=== PATIENT | male | born 1995 | race American Indian/Alaskan Native ===

== ENCOUNTER 2017-12-24 00:38 | Emergency (ER) | payer SELFPAY ==
[2017-12-24 02:36] LABS: Bilirubin,Urine NEG (Negative); Blood,Urine NEG (Negative); Color,Urine Yellow (Yellow); Protein,Urine <15 mg/dL mg/dL (Negative); Urobilinogen,Urine < 2.0 mg/dL (<2.0)
[2017-12-24 02:39] LABS: WBC,Urine < 1.0 /HPF (0.0-6.0)
[2017-12-24] MEDS ORDERED: ZITHROMAX PO ONE (02:43)
[2017-12-24] MEDS ORDERED: ROCEPHIN IM ONE (02:43)
[2017-12-24] MEDS ORDERED: XYLOCAINE 1% MPF 5 mL INFILTRATI ONE (02:43)
--- NOTE | 2017-12-24 03:02 | Emergency Department Report ---
ED Male HPI - General Chief complaint: Urogenital-Male Stated complaint: STD EXPLOSURE Time Seen by Provider: 12/24/17 01:23 Source: patient Mode of arrival: Ambulatory Limitations: No Limitations - History of Present Illness Initial comments: This is a 59-year-old male nontoxic, well nourished in appearance, no acute signs of distress presents to the ED with c/o of STD check-up. Patient denies any testicular pain or swelling. PAtient denies any penile discharge. Patient denies any penile ulcers or lesions. Patient denies any nausea, vomiting, chest pain, shortness of breathe, fever, chills, headache, back pain, numbness, tingling, stiff neck. Patient denies any urinary symptoms. Patient denies any allergies or PMH. MD Complaint: other (possible STD) Radiation: none Severity scale (0 -10): 0 Improves with: none Worsens with: none denies other symptoms. denies: discharge, swelling, mass, rash, urinary retention, blood in urine, dysuria, fever, nausea/vomiting, incontinence - Related Data Allergies Allergy/AdvReac Type Severity Reaction Status Date / Time No Known Allergies Allergy Verified 12/24/17 01:09 ED Review of Systems ROS: Stated complaint: STD EXPLOSURE Other details as noted in HPI Constitutional: denies: chills, fever Eyes: denies: eye pain, eye discharge, vision change ENT: denies: ear pain, throat pain Respiratory: denies: cough, shortness of breath, wheezing Cardiovascular: denies: chest pain, palpitations Endocrine: no symptoms reported Gastrointestinal: denies: abdominal pain, nausea, diarrhea Genitourinary: denies: urgency, dysuria Musculoskeletal: denies: back pain, joint swelling, arthralgia Skin: denies: rash, lesions Neurological: denies: headache, weakness, paresthesias Psychiatric: denies: anxiety, depression Hematological/Lymphatic: denies: easy bleeding, easy bruising ED Past Medical Hx - Past Medical History Previous Medical History?: No - Surgical History Past Surgical History?: No - Social History Smoking Status: Current Every Day Smoker Substance Use Type: Alcohol, Marijuana ED Physical Exam - General Limitations: No Limitations General appearance: alert, in no apparent distress - Head Head exam: Present: atraumatic, normocephalic - Eye Eye exam: Present: normal appearance Pupils: Present: normal accommodation - ENT ENT exam: Present: normal exam, mucous membranes moist - Neck Neck exam: Present: normal inspection, full ROM - Respiratory Respiratory exam: Present: normal lung sounds bilaterally. Absent: respiratory distress - Cardiovascular Cardiovascular Exam: Present: regular rate, normal rhythm. Absent: systolic murmur, diastolic murmur, rubs, gallop - GI/Abdominal GI/Abdominal exam: Present: soft, normal bowel sounds - Rectal Rectal exam: Present: deferred - Extremities Exam Extremities exam: Present: normal inspection, full ROM, normal capillary refill - Back Exam Back exam: Present: normal inspection, full ROM. Absent: tenderness, CVA tenderness (R), CVA tenderness (L), muscle spasm, paraspinal tenderness, vertebral tenderness, rash noted - Neurological Exam Neurological exam: Present: alert, oriented X3, normal gait - Psychiatric Psychiatric exam: Present: normal affect, normal mood - Skin Skin exam: Present: warm, dry, intact, normal color. Absent: rash ED Course Vital Signs 12/24/17 01:09 Temperature 98.6 F Pulse Rate 71 Respiratory 16 Rate Blood Pressure 122/75 O2 Sat by Pulse 100 Oximetry - Reevaluation(s) Reevaluation #1: 12/24/17 03:01 Patient is speaking in full sentences with no signs of distress noted. ED Medical Decision Making - Medical Decision Making This is a 21-year-old male that presents with possible STD. Patient is stable was examined by me. There is no abdominal tenderness. UA obtained. Gonorrhea chlamydia swab pending. Patient was instructed to return in 3-5 days for GC results. Patient wanted empirical treatment so patient received 250 mg Rocephin and 1 g of azithromycin by mouth. Patient was instructed to Follow-up with a primary care doctor in 3-5 days or if symptoms worsen and continue return to emergency room as soon as possible. At time of discharge, the patient does not seem toxic or ill in appearance. No acute signs of distress noted. Patient agrees to discharge treatment plan of care. No further questions noted by the patient. Critical care attestation.: If time is entered above; I have spent that time in minutes in the direct care of this critically ill patient, excluding procedure time. ED Disposition Clinical Impression: Possible exposure to STD Disposition: DC-01 TO HOME OR SELFCARE Is pt being admited?: No Does the pt Need Aspirin: No Condition: Stable Instructions: Safe Sex (ED) Additional Instructions: Follow-up with a primary care doctor in 3-5 days or if symptoms worsen and continue return to emergency room as soon as possible. Return in 3-5 days for gonorrhea and chlamydia results. Referrals: PRIMARY CARE, [Primary Care Provider] - 3-5 Days GIOVANNA MATUTE MD [Staff Physician] - 3-5 Days [facility] [Outside] - 3-5 Days Forms: Work/School Release Form(ED)
[2017-12-24] MEDS ORDERED: ZITHROMAX ONE (03:37)
[2017-12-24 04:13] VITALS: BP 118/69
== END 2017-12-24 04:12 | disposition home or self-care (01) ==
LOC: ED 00:38
DX: Z11.3 Encounter for screening for infections with a predominantly sexual mode of transmission (principal); F17.200 Nicotine dependence, unspecified, uncomplicated; F12.10 Cannabis abuse, uncomplicated
CPT/HCPCS: 81001; 87591; 96372; 99282; J0696

== ENCOUNTER 2018-07-21 22:17 | Emergency (ER) | payer SELFPAY ==
[2018-07-21 22:27] VITALS: BP 132/82
--- NOTE | 2018-07-21 22:55 | Emergency Department Report ---
Chief Complaint: Urogenital-Male Stated Complaint: L HIP PAIN/POSS STD Time Seen by Provider: 07/21/18 22:46 - HPI History of Present Illness: pt presents states that his partner was diagnosed with syphyliss and thinks he has syphyllis denies penile d/c, or any genourinary symptoms rash, fever - ROS Review of Systems: As seen in HPI - Exam Vital Signs: Vital Signs 07/21/18 22:25 Temperature 98.7 F Pulse Rate 80 Respiratory 18 Rate Blood Pressure 132/82 O2 Sat by Pulse 100 Oximetry MSE screening note: Focused history and physical exam performed. Due to findings the following was ordered: ED Medical Decision Making - Medical Decision Making 22 y o male presents with test for syphyllis Discussed with the patient that he will need to go to the health Department for STD screening. [facility] referral and pamphlet given to patient. Discussed the patient he could also go to the health Department. Patient had no symptoms today, no sores, no lesions. Patient understood instructions and states of follow-up. Palpation speaking in complete clear sentences has no neurological deficit. ED Disposition for MSE Clinical Impression: Screen for STD (sexually transmitted disease) Disposition: DC- TO HOME OR SELFCARE Is pt being admited?: No Does the pt Need Aspirin: No Condition: Stable Instructions: Sexually Transmitted Diseases (ED), Syphilis (ED), Safe Sex (ED) Additional Instructions: f/u with [facility] for STD screening Referrals: [facility] [Outside] - 3-5 Days [facility] [Outside] - 3-5 Days Forms: Work/School Release Form(ED) Time of Disposition: 22:54
== END 2018-07-21 23:00 | disposition home or self-care (01) ==
LOC: ED 22:17
DX: Z11.3 Encounter for screening for infections with a predominantly sexual mode of transmission (principal)
CPT/HCPCS: 99282

== ENCOUNTER 2020-11-22 03:46 | Inpatient (IN) | payer OTHER ==
[2020-11-22 05:45] LABS: Basophils % (Auto) 0.6 % (0.0-1.8); Eosinophils % (Auto) 0.1 % (0.0-4.3); Hematocrit 43.4 % (35.5-45.6); Hemoglobin 14.4 gm/dl (11.8-15.2); Lymphocytes # (Auto) 1.6 K/mm3 (1.2-5.4); Lymphocytes % (Auto) 21.6 % (13.4-35.0); Mean Corpuscular HGB Conc 33 % (32-34); Mean Corpuscular Volume 83 fl (84-94); Monocytes # (Auto) 0.4 K/mm3 (0.0-0.8); Platelet Count 372 K/mm3 (140-440); Red Blood Count 5.22 M/mm3 (3.65-5.03); Red Cell Distribution Width 14.2 % (13.2-15.2)
[2020-11-22 06:10] LABS: Alanine Aminotransferase 10 units/L (7-56); Albumin 4.7 g/dL (3.9-5); BUN/Creatinine Ratio 17; Blood Urea Nitrogen 10 mg/dL (9-20); Calcium 9.9 mg/dL (8.4-10.2); Hemolysis Index 10
[2020-11-22] MEDS ORDERED: SODIUM CHLORIDE 0.9% 1000 ML 1,000 ML IV ONE ×2 (06:16→12:21)
[2020-11-22] MEDS ORDERED: ONDANSETRON 4 MG/2 ML INJ IV ONE ×3 (06:16→12:21)
--- NOTE | 2020-11-22 06:23 | Emergency Department Report ---
ED General Adult HPI - General Chief complaint: Overdose Stated complaint: OVERDOSE Time Seen by Provider: 11/22/20 06:05 Source: patient Mode of arrival: Stretcher Limitations: No Limitations - History of Present Illness Initial comments: 24-year-old male presents to ED for evaluation. I spoke with mother over the phone who states EMS was called because patient was vomiting and sweating and going into opioid withdrawal. 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 States he normally has some off of the street. She states patient takes Roxicodone 30 mg tabs 3 times a day normally. Mother states she was able to get him some help and get him on Suboxone. States patient is supposed to start taking his Suboxone today. She states on yesterday, patient only took one of his 3 Roxicodone, so patient is going into withdrawal. Patient's bottle of Suboxone has 29.5 out of 30 pills in it. It was filled on 11/21/2020. Triage note states patient took 4 Suboxone tablets, but it appears he only took half of a tablet. Patient tells me that he took 4 oxycodone pills because he was trying to get high. Patient denies any suicidal ideations. Patient was given Narcan by EMS prior to arrival, nurse states EMS reported that patient was "out of it." Patient defecated on himself while with EMS. Patient states he is having withdrawal symptoms because he took the Suboxone. Patient is not very forthcoming with information. When I asked patient question, patient will blink his eyes incessantly. However, when I told him to stop and to open his eyes and look at me and answer my question, patient follows directions and will then speak. -: Last night - Related Data Allergies Allergy/AdvReac Type Severity Reaction Status Date / Time No Known Allergies Allergy Verified 12/24/17 01:09 ED Review of Systems ROS: Stated complaint: OVERDOSE Other details as noted in HPI Comment: All other systems reviewed and negative Gastrointestinal: nausea, vomiting Psychiatric: denies: homicidal thoughts, suicidal thoughts ED Past Medical Hx - Past Medical History Hx Hypertension: No Hx CVA: No Hx Heart Attack/AMI: No Hx Congestive Heart Failure: No Hx Diabetes: No Hx Deep Vein Thrombosis: No Hx Pulmonary Embolism: No Hx GERD: No Hx Liver Disease: No Hx Renal Disease: No Hx Sickle Cell Disease: No Hx Arthritis: No Hx Headaches / Migraines: No Hx Seizures: No Hx Kidney Stones: No Hx Psychiatric Treatment: No Hx Asthma: No Hx COPD: No Hx Tuberculosis: No Hx Dementia: No Hx HIV: No - Surgical History Hx Coronary Stent: No Hx Open Heart Surgery: No Hx Pacemaker: No Hx Internal Defibrillator: No Hx Cholecystectomy: No Hx Appendectomy: No Hx Breast Surgery: No Additional Surgical History: eye surgery - Social History Smoking Status: Unknown if ever smoked Substance Use Type: None ED Physical Exam - General Limitations: No Limitations General appearance: alert, in no apparent distress - Head Head exam: Present: atraumatic, normocephalic - Eye Eye exam: Present: normal appearance, PERRL, EOMI Pupils: Present: normal accommodation - ENT ENT exam: Present: mucous membranes moist - Neck Neck exam: Present: normal inspection - Respiratory Respiratory exam: Present: normal lung sounds bilaterally. Absent: respiratory distress - Cardiovascular Cardiovascular Exam: Present: regular rate, normal rhythm - GI/Abdominal GI/Abdominal exam: Present: soft. Absent: distended, tenderness - Extremities Exam Extremities exam: Present: normal inspection - Neurological Exam Neurological exam: Present: alert, altered, CN II-XII intact. Absent: motor sensory deficit - Psychiatric Psychiatric exam: Present: flat affect, other (bizarre affect) - Skin Skin exam: Present: warm, dry, intact, normal color ED Course Vital Signs 11/22/20 11/22/20 11/22/20 04:19 04:26 04:30 Temperature 98.4 F Pulse Rate 90 57 L Respiratory 18 16 Rate Blood Pressure 122/74 122/58 122/58 O2 Sat by Pulse 100 Oximetry 11/22/20 11/22/20 11/22/20 04:46 05:00 05:16 Temperature Pulse Rate 56 L 56 L 55 L Respiratory 25 H 27 H 23 Rate Blood Pressure 116/59 116/62 110/71 O2 Sat by Pulse Oximetry 11/22/20 11/22/20 11/22/20 05:30 05:46 06:00 Temperature Pulse Rate 105 H 60 Respiratory 23 21 21 Rate Blood Pressure 110/71 105/43 116/55 O2 Sat by Pulse Oximetry 11/22/20 11/22/20 11/22/20 06:16 06:30 06:46 Temperature Pulse Rate 57 L 56 L 58 L Respiratory 23 21 19 Rate Blood Pressure 101/52 107/59 114/54 O2 Sat by Pulse Oximetry 11/22/20 11/22/20 11/22/20 07:00 07:16 07:30 Temperature Pulse Rate 67 Respiratory 20 20 24 Rate Blood Pressure 131/65 124/64 118/73 O2 Sat by Pulse Oximetry 11/22/20 11/22/20 11/22/20 07:46 08:00 08:16 Temperature Pulse Rate 56 L 56 L 57 L Respiratory 18 20 21 Rate Blood Pressure 113/66 125/57 123/55 O2 Sat by Pulse Oximetry 11/22/20 11/22/20 11/22/20 08:30 08:46 09:00 Temperature Pulse Rate 59 L 55 L 54 L Respiratory 17 18 18 Rate Blood Pressure 123/55 123/55 126/66 O2 Sat by Pulse Oximetry 11/22/20 11/22/20 11/22/20 09:16 09:30 09:46 Temperature Pulse Rate 108 H 65 56 L Respiratory 26 H 17 23 Rate Blood Pressure 126/66 126/66 126/66 O2 Sat by Pulse Oximetry 11/22/20 11/22/20 11/22/20 13:06 13:30 14:00 Temperature Pulse Rate 59 L 82 80 Respiratory 20 22 35 H Rate Blood Pressure 101/55 113/70 O2 Sat by Pulse 99 99 99 Oximetry 11/22/20 11/22/20 11/22/20 14:30 15:08 15:31 Temperature Pulse Rate 58 L 68 59 L Respiratory 26 H 12 14 Rate Blood Pressure 136/60 93/76 O2 Sat by Pulse 100 98 99 Oximetry 11/22/20 11/22/20 11/22/20 16:01 17:10 17:31 Temperature Pulse Rate 61 57 L 74 Respiratory 15 27 H 14 Rate Blood Pressure 132/73 130/63 128/68 O2 Sat by Pulse 99 86 100 Oximetry 11/22/20 18:01 Temperature Pulse Rate 110 H Respiratory 37 H Rate Blood Pressure 128/58 O2 Sat by Pulse 100 Oximetry ED Medical Decision Making - Lab Data Result diagrams: 11/23/20 05:29 11/23/20 05:29 - EKG Data -: EKG Interpreted by Ga EKG shows normal: sinus rhythm, axis, intervals, QRS complexes, ST-T waves Rate: bradycardia - EKG Data Interpretation: no acute changes - Radiology Data Radiology results: report reviewed, image reviewed - Medical Decision Making Patient did not overdose on Suboxone. He appears to be experiencing withdrawal symptoms. He denies any suicidal ideations, however he does state that he would like to talk to mental health university registrar regarding things that are going on in his life. Drug screen was not positive for opioids. It was positive for benzodiazepines and marijuana. I asked patient if he also takes Xanax or any other benzos, patient replies "sometimes." Patient has a flat and somewhat bizarre affect. He blinks his eyes repeatedly when asked a question. When told to stop and answer my question, patient does so. CT Head negative for any acute findings. Patient has had several episodes of emesis, despite antiemetics, and has also defecated on himself. Will admit to hospitalist, Dr Moffett, for intracrable nausea and vomiting. - Differential Diagnosis opiate withdrawal, psychosis, intracranial abnormality, intoxication Critical care attestation.: If time is entered above; I have spent that time in minutes in the direct care of this critically ill patient, excluding procedure time. ED Disposition Clinical Impression: Polysubstance abuse, Intractable nausea and vomiting, Hypokalemia, Opiate withdrawal, Acute encephalopathy Disposition: DC-09 OP ADMIT IP TO THIS HOSP Is pt being admited?: Yes Condition: Stable Time of Disposition: 12:19
[2020-11-22 07:05] LABS: Bilirubin,Urine NEG (Negative); Blood,Urine NEG (Negative); Color,Urine Yellow (Yellow); Mucus,Urine 3+ /HPF
[2020-11-22 07:14] LABS: Amphetamine Screen,Urine PRESUMPTIVE NEGATIVE; Benzodiazepines Screen,Urine PRESUMPTIVE POSITIVE; Cannabinoid Screen,Urine PRESUMPTIVE POSITIVE; Cocaine Screen,Urine PRESUMPTIVE NEGATIVE; Methadone Screen,Urine PRESUMPTIVE NEGATIVE; Opiate Screen,Urine PRESUMPTIVE NEGATIVE
[2020-11-22] MEDS ORDERED: ONDANSETRON 4 MG/2 ML INJ ONE (09:52)
[2020-11-22] MEDS ORDERED: SODIUM CHLORIDE 0.9% 1000 ML 1,000 ML ONE (09:52)
--- NOTE | 2020-11-22 11:15 | Cat Scan Report ---
CT head/brain wo con INDICATION: ams. TECHNIQUE: All CT scans at this location are performed using CT dose reduction for ALARA by means of automated e xposure control. COMPARISON: None available. FINDINGS: There is no evidence of hemorrhage, hydrocephalus, brain edema, or mass effect/mass lesion. There is overall normal brain formation and brain volume for the patient's age. Ventricular and cisternal/sulc al size is normal for age. There are postsurgical changes from previous craniotomy. The included paranasal sinuses and mastoid air cells are clear. The orbits appear unremarkable. IMPRESSION: 1. No acute findings. Signer Name: Jere Orellana MD Signed: 11/22/2020 11:11 AM Workstation Name: [id number]
[2020-11-22] MEDS ORDERED: METOCLOPRAMIDE 10 MG/2 ML INJ IV ONE (12:28)
--- NOTE | 2020-11-22 12:33 | Consultation ---
History of Present Illness - Reason for Consult Consult date: 11/22/20 Reason for consult: bizarre behavior - History of Present Psychiatric Illness Per ER Note: 24-year-old male presents to ED for evaluation. I spoke with mother over the phone who states EMS was called because patient was vomiting and sweating and going into opioid withdrawal. 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 States he normally has some off of the street. She states patient takes Roxicodone 30 mg tabs 3 times a day normally. Mother states she was able to get him some help and get him on Suboxone. States patient is supposed to start taking his Suboxone today. She states on yesterday, patient only took one of his 3 Roxicodone, so patient is going into withdrawal. Patient's bottle of Suboxone has 29.5 out of 30 pills in it. It was filled on 11/21/2020. Triage note states patient took 4 Suboxone tablets, but it appears he only took half of a tablet. Patient tells me that he took 4 oxycodone pills because he was trying to get high. Patient denies any suicidal ideations. Patient was given Narcan by EMS prior to arrival, nurse states EMS reported that patient was "out of it." Patient defecated on himself while with EMS. Patient states he is having withdrawal symptoms because he took the Suboxone. Patient is not very forthcoming with information. When I asked patient question, patient will blink his eyes incessantly. However, when I told him to stop and to open his eyes and look at me and answer my question, patient follows directions and will then speak. I attempted to evaluate 24y/o Get Wong. He was exhibiting bizarre behavior. The patient was lying on his stomach with his face into the bed. I attempt to turn his head but met resistance. He did not initially acknowledge my present. The upper half of the bed was covered with saliva. The patient was breathing and moving somewhat. When touching him and asking if he could hear me, he shook his head up and down. It appears the patient was just uncooperative. He did not further respond to questioning. PAST PSYCHIATRIC HISTORY: Unable to obtain PAST MEDICAL HISTORY: Unable to obtain Family Psychiatric History: Unable to obtain SOCIAL HISTORY Unable to obtain REVIEW OF SYSTEMS Mood Disorder, Unspecified MENTAL STATUS EXAMINATION General Appearance: Dressed appropriately, saliva on upper half of bed Behavior: bizarre Assessment Schizoaffective Disorder Treatment Plan Will follow the patient on the medical unit, and not order any meds until able to evaluate further Sitter: Per primary Medical: Primary Disposition: Recommend acute psychiatric inpatient treatment Will follow. Thank you for this consult. Case staffed with Dr. Newberry. Medications and Allergies Allergies Allergy/AdvReac Type Severity Reaction Status Date / Time No Known Allergies Allergy Verified 12/24/17 01:09 Active Meds: Active Medications Sodium Chloride (Nacl 0.9% 1000 Ml) 1,000 mls @ 999 mls/hr IV BOLUS ONE Stop: 11/22/20 13:21 Mental Status Exam - Vital signs Last Vital Signs Temp 98.4 F 11/22/20 04:19 Pulse 56 L 11/22/20 09:46 Resp 23 11/22/20 09:46 BP 126/66 11/22/20 09:46 Pulse Ox 100 11/22/20 04:19 Results Result Diagrams: 11/22/20 05:24 11/22/20 05:24 Abnormal lab results 11/22/20 11/22/20 11/22/20 Range/Units 05:24 05:24 05:24 RBC 5.22 H (3.65-5.03) M/mm3 MCV 83 L (84-94) fl Seg Neutrophils % 72.7 H (40.0-70.0) % Potassium 3.5 L (3.6-5.0) mmol/L Creatinine 0.6 L (0.8-1.3) mg/dL Glucose 101 H (75-100) mg/dL Alkaline Phosphatase 130 H (35-129) units/L Total Protein 8.3 H (6.3-8.2) g/dL Ur Specific [place] (1.003-1.030) Salicylates < 0.3 L (2.8-20.0) mg/dL Acetaminophen (10.0-30.0) ug/mL 11/22/20 11/22/20 Range/Units 05:24 06:54 RBC (3.65-5.03) M/mm3 MCV (84-94) fl Seg Neutrophils % (40.0-70.0) % Potassium (3.6-5.0) mmol/L Creatinine (0.8-1.3) mg/dL Glucose (75-100) mg/dL Alkaline Phosphatase (35-129) units/L Total Protein (6.3-8.2) g/dL Ur Specific [place] 1.031 H (1.003-1.030) Salicylates (2.8-20.0) mg/dL Acetaminophen 5.0 L (10.0-30.0) ug/mL All other labs normal.
[2020-11-22] MEDS: POTASSIUM CHLORIDE ER 20 MEQ TAB PO ONE ×2 (13:31→13:34)
[2020-11-22] MEDS ORDERED: diphenhydrAMINE 50 MG/ML VIAL IV ONE (14:31)
--- NOTE | 2020-11-22 19:48 | Electrocardiograph Report ---
[facility] Test Date: 2020-11-22 Test Time: 05:09:36 Pat Name: BILL HUNT Department: Room: [facility] Gender: M Sales Service Technician: CLARISSA : [id number] Requested By: MARQUIS ACEVEDO Order Number: [id number] Reading MD: Gian Mejia Measurements Intervals [place] Rate: 55 P: 68 RI: 177 QRS: 61 QRSD: 88 T: 44 QT: 398 QTc: 380 Interpretive Statements Sinus bradycardia Minor non specific T wave abnormalities noted. No previous ECG available for comparison Electronically Signed On 11-22-2020 19:48:39 EDT by Gian Mejia
[2020-11-22] MEDS ORDERED: FAMOTIDINE 20 MG/2 ML INJ IV ONE (21:54)
--- NOTE | 2020-11-22 21:54 | History and Physical Report ---
History of Present Illness Date of examination: 11/22/20 Date of admission: 11/22/20 12:20 Chief complaint: Decreased responsiveness since a.m. History of present illness: 34-year-old male with no significant past medical history comes in for vomiting and sweating. Patient is apparently addicted to oxycodone for the last 2 years. Patient apparently takes 30 mg tablets three times a day. Buys oxycodone on the street . Because of oxycodone dependence patient was put on one Suboxone. Patient apparently took-one Suboxone today. Patient was given Narcan by EMS prior to arrival. Patient decreased responsiveness. Also apparently patient defecated on himself while with EMS. No fever or chills. No exposure to coronavirus. - Past Medical History --No - Surgical History --Additional Surgical History: eye surgery - Social History Smoking Status: Unknown if ever smoked Opioid dependence Family history --Htn Review of Systems ROS: Constitutional lethargic and decreased responsiveness HEENT no sore throat no post nasal drip no diplopia Neck no neck stiffness no lymph gland enlargement Chest and lungs no shortness of breath cough or wheezing CVS no chest pain no diaphoresis no palpitations GI no nausea no vomiting no diarrhea Genitourinary system no dysuria no flank pain Musculoskeletal system no muscle pains no joint pains [employer] lethargic and decreased responsiveness Skin no rash no itching Psychiatric no depression no homicidal or suicidal tendencies Hematologic no lymphedema or bruising Endocrine no polydipsia no polyuria no cold intolerance no heat intolerance Medications and Allergies Allergies Allergy/AdvReac Type Severity Reaction Status Date / Time No Known Allergies Allergy Verified 12/24/17 01:09 Exam - Constitutional Vitals: Temp Pulse Resp BP Pulse Ox 98.4 F 110 H 37 H 128/58 100 11/22/20 04:19 11/22/20 18:01 11/22/20 18:01 11/22/20 18:01 11/22/20 18:01 General appearance: Present: no acute distress, well-nourished - EENT Eyes: Present: PERRL ENT: hearing intact, clear oral mucosa - Neck Neck: Present: supple, normal ROM - Respiratory Respiratory effort: normal Respiratory: bilateral: CTA - Cardiovascular Heart rate: 78 Rhythm: regular Heart Sounds: Present: S1 & S2. Absent: rub, click - Extremities Extremities: pulses symmetrical, No edema Peripheral Pulses: within normal limits - Abdominal General gastrointestinal: Present: soft, non-tender, non-distended, normal bowel sounds Male genitourinary: Present: normal - Integumentary Integumentary: Present: clear, warm, dry - Musculoskeletal Musculoskeletal: gait normal, strength equal bilaterally - Psychiatric Psychiatric: other (Lethargic, wakes up with painful stimuli) - Neurologic Neurologic: CNII-XII intact, moves all extremities, other (Lethargic and decreased responsiveness) Results - Labs CBC & Chem 7: 11/22/20 05:24 11/22/20 05:24 Labs: Laboratory Last Values WBC 7.2 K/mm3 (4.5-11.0) 11/22/20 05:24 RBC 5.22 M/mm3 (3.65-5.03) H 11/22/20 05:24 Hgb 14.4 gm/dl (11.8-15.2) 11/22/20 05:24 Hct 43.4 % (35.5-45.6) 11/22/20 05:24 MCV 83 fl (84-94) L 11/22/20 05:24 MCH 28 pg (28-32) 11/22/20 05:24 MCHC 33 % (32-34) 11/22/20 05:24 RDW 14.2 % (13.2-15.2) 11/22/20 05:24 Plt Count 372 K/mm3 (140-440) 11/22/20 05:24 Lymph % (Auto) 21.6 % (13.4-35.0) 11/22/20 05:24 [place] % (Auto) 5.0 % (0.0-7.3) 11/22/20 05:24 Eos % (Auto) 0.1 % (0.0-4.3) 11/22/20 05:24 Baso % (Auto) 0.6 % (0.0-1.8) 11/22/20 05:24 Lymph # (Auto) 1.6 K/mm3 (1.2-5.4) 11/22/20 05:24 [place] # (Auto) 0.4 K/mm3 (0.0-0.8) 11/22/20 05:24 Eos # (Auto) 0.0 K/mm3 (0.0-0.4) 11/22/20 05:24 Baso # (Auto) 0.0 K/mm3 (0.0-0.1) 11/22/20 05:24 Seg Neutrophils % 72.7 % (40.0-70.0) H 11/22/20 05:24 Seg Neutrophils # 5.3 K/mm3 (1.8-7.7) 11/22/20 05:24 Sodium 142 mmol/L (137-145) 11/22/20 05:24 Potassium 3.5 mmol/L (3.6-5.0) L 11/22/20 05:24 Chloride 102.3 mmol/L (98-107) 11/22/20 05:24 Carbon Dioxide 23 mmol/L (22-30) 11/22/20 05:24 Anion Gap 20 mmol/L 11/22/20 05:24 BUN 10 mg/dL (9-20) 11/22/20 05:24 Creatinine 0.6 mg/dL (0.8-1.3) L 11/22/20 05:24 Estimated GFR > 60 ml/min 11/22/20 05:24 BUN/Creatinine Ratio 17 % 11/22/20 05:24 Glucose 101 mg/dL (75-100) H 11/22/20 05:24 Calcium 9.9 mg/dL (8.4-10.2) 11/22/20 05:24 Total Bilirubin 0.40 mg/dL (0.1-1.2) 11/22/20 05:24 AST 16 units/L (5-40) 11/22/20 05:24 ALT 10 units/L (7-56) 11/22/20 05:24 Alkaline Phosphatase 130 units/L (35-129) H 11/22/20 05:24 Total Protein 8.3 g/dL (6.3-8.2) H 11/22/20 05:24 Albumin 4.7 g/dL (3.9-5) 11/22/20 05:24 Albumin/Globulin Ratio 1.3 % 11/22/20 05:24 Urine Color Yellow (Yellow) 11/22/20 06:54 Urine Turbidity Hazy (Clear) 11/22/20 06:54 Urine pH 6.0 (5.0-7.0) 11/22/20 06:54 Ur Specific [place] 1.031 (1.003-1.030) H 11/22/20 06:54 Urine Protein 100 mg/dl mg/dL (Negative) 11/22/20 06:54 Urine Glucose (UA) Neg mg/dL (Negative) 11/22/20 06:54 Urine Ketones 80 mg/dL (Negative) 11/22/20 06:54 Urine Blood Neg (Negative) 11/22/20 06:54 Urine Nitrite Neg (Negative) 11/22/20 06:54 Urine Bilirubin Neg (Negative) 11/22/20 06:54 Urine Urobilinogen 2.0 mg/dL (<2.0) 11/22/20 06:54 Ur Leukocyte Esterase Neg (Negative) 11/22/20 06:54 Urine WBC (Auto) 1.0 /HPF (0.0-6.0) 11/22/20 06:54 Urine RBC (Auto) 3.0 /HPF (0.0-6.0) 11/22/20 06:54 U Epithel Cells (Auto) < 1.0 /HPF (0-13.0) 11/22/20 06:54 Urine Mucus 3+ /HPF 11/22/20 06:54 Salicylates < 0.3 mg/dL (2.8-20.0) L 11/22/20 05:24 Urine Opiates Screen Presumptive negative 11/22/20 06:54 Urine Methadone Screen Presumptive negative 11/22/20 06:54 Acetaminophen 5.0 ug/mL (10.0-30.0) L 11/22/20 05:24 Ur Barbiturates Screen Presumptive negative 11/22/20 06:54 Ur Phencyclidine Scrn Presumptive negative 11/22/20 06:54 Ur Amphetamines Screen Presumptive negative 11/22/20 06:54 U Benzodiazepines Scrn Presumptive positive 11/22/20 06:54 Urine Cocaine Screen Presumptive negative 11/22/20 06:54 U Marijuana (THC) Screen Presumptive positive 11/22/20 06:54 Drugs of Abuse Note Disclamer 11/22/20 06:54 - Imaging and Cardiology Chest x-ray: report reviewed CT Scan - head: report reviewed Imaging and Cardiology: Head CT No acute findings Abdominal CAT scan Report is pending EKG sinus bradycardia heart rate of 55/min Assessment and Plan Advance Directives: Yes (Full code) Plan of care discussed with patient/family: Yes - Patient Problems (1) Acute encephalopathy Current Visit: Yes Status: Acute Plan to address problem: Secondary to opiate dependence and opiate withdrawal Opiates was negative on the urine drug screen (2) Hypokalemia Current Visit: Yes Status: Acute Plan to address problem: Supplemented (3) Opiate withdrawal Current Visit: Yes Status: Acute Plan to address problem: IV fluids for now [facility] protocol mental health consult (4) Polysubstance abuse Current Visit: Yes Status: Chronic Plan to address problem: Patient is positive for THC and benzos Patient counseled Mental health consult (5) DVT prophylaxis Current Visit: Yes Status: Acute Plan to address problem: Heparin and GI prophylaxis
[2020-11-22] MEDS ORDERED: LORazepam 2 MG/ML VIAL IV PRN (22:07)
[2020-11-22] MEDS ORDERED: POTASSIUM CHLORIDE ER 20 MEQ TAB PO ONE (22:07)
[2020-11-22] MEDS ORDERED: ONDANSETRON 4 MG/2 ML INJ IV PRN (22:10)
[2020-11-22] MEDS ORDERED: ACETAMINOPHEN 325 MG TAB PO PRN (22:10)
[2020-11-22] MEDS ORDERED: METOCLOPRAMIDE 10 MG/2 ML INJ IV PRN (22:10)
[2020-11-22] MEDS ORDERED: IBUPROFEN 600 MG TAB PO PRN (22:10)
[2020-11-22] MEDS ORDERED: methylPREDNISolone Sod Succinate 125 MG/2 ML INJ IV ONE (22:18)
[2020-11-22] MEDS: methylPREDNISolone Sod Succinate 125 MG/2 ML INJ IV SCH (23:48)
[2020-11-22] MEDS: HEPARIN 5,000 UNIT/1 ML VIAL SUB-Q SCH (23:49)
[2020-11-23] MEDS: D5W/0.9% NACL 1,000 ML IV SCH ×3 (02:42→19:00)
[2020-11-23] MEDS: methylPREDNISolone Sod Succinate 125 MG/2 ML INJ IV SCH ×4 (03:55→22:13)
[2020-11-23 05:56] LABS: Basophils % (Auto) 0.3 % (0.0-1.8); Hematocrit 38.7 % (35.5-45.6); Hemoglobin 12.8 gm/dl (11.8-15.2); Lymphocytes # (Auto) 1.3 K/mm3 (1.2-5.4); Lymphocytes % (Auto) 11.1 % (13.4-35.0); Mean Corpuscular HGB Conc 33 % (32-34); Mean Corpuscular Volume 84 fl (84-94); Monocytes # (Auto) 0.1 K/mm3 (0.0-0.8); Monocytes % (Auto) 1.2 % (0.0-7.3); Platelet Count 324 K/mm3 (140-440); Red Blood Count 4.62 M/mm3 (3.65-5.03); Red Cell Distribution Width 14.3 % (13.2-15.2)
[2020-11-23 06:14] LABS: Alanine Aminotransferase 12 units/L (7-56); Albumin 4.2 g/dL (3.9-5); Blood Urea Nitrogen 14 mg/dL (9-20); Calcium 8.7 mg/dL (8.4-10.2); Hemolysis Index 20
[2020-11-23 06:16] LABS: BUN/Creatinine Ratio 23
--- NOTE | 2020-11-23 07:18 | Progress Note ---
Assessment and Plan Assessment and plan: (1) Acute encephalopathy Current Visit: Yes Status: Acute Plan to address problem: Secondary to opiate dependence and opiate withdrawal Opiates was negative on the urine drug screen (2) Hypokalemia Current Visit: Yes Status: Acute Plan to address problem: Supplemented (3) Opiate withdrawal Current Visit: Yes Status: Acute Plan to address problem: IV fluids for now [facility] protocol mental health consult (4) Polysubstance abuse Current Visit: Yes Status: Chronic Plan to address problem: Patient is positive for THC and benzos Patient counseled Mental health consult (5) DVT prophylaxis Current Visit: Yes Status: Acute Plan to address problem: Heparin and GI prophylaxis 11/23/2020 -Patient was still confused, was mumbling -We will keep the patient in the hospital until he is fully alert and oriented -We will follow mental health recommendations History Interval history: Patient was seen and evaluated this morning Patient was confused, tried to answer questions but he was mumbling Hospitalist Physical - Physical exam Narrative exam: Not in cardiopulmonary distress. The patient appeared well nourished and normally developed. Vital signs as documented. Head exam is unremarkable. No scleral icterus . Neck is without jugular venous distension, thyromegaly, or carotid bruits. Lungs are clear to auscultation. Cardiac exam reveals regular rate and Rhythm. Abdominal exam reveals normal bowel sounds, nontender, no organomegaly. Extremities are nonedematous and both femoral and pedal pulses are normal. 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: Patient tried to answer questions but he was mumbling - Constitutional Vitals: Temp Pulse Resp BP Pulse Ox 98.9 F 68 20 136/82 98 11/23/20 06:00 11/23/20 06:00 11/23/20 06:00 11/23/20 06:00 11/23/20 03:00 General appearance: Present: no acute distress, well-nourished Results - Labs CBC & Chem 7: 11/23/20 05:29 11/23/20 05:29 Labs: Laboratory Last Values WBC 11.7 K/mm3 (4.5-11.0) H 11/23/20 05:29 RBC 4.62 M/mm3 (3.65-5.03) 11/23/20 05:29 Hgb 12.8 gm/dl (11.8-15.2) 11/23/20 05:29 Hct 38.7 % (35.5-45.6) 11/23/20 05:29 MCV 84 fl (84-94) 11/23/20 05:29 MCH 28 pg (28-32) 11/23/20 05:29 MCHC 33 % (32-34) 11/23/20 05:29 RDW 14.3 % (13.2-15.2) 11/23/20 05:29 Plt Count 324 K/mm3 (140-440) 11/23/20 05:29 Lymph % (Auto) 11.1 % (13.4-35.0) L 11/23/20 05:29 [place] % (Auto) 1.2 % (0.0-7.3) 11/23/20 05:29 Eos % (Auto) 0.0 % (0.0-4.3) 11/23/20 05:29 Baso % (Auto) 0.3 % (0.0-1.8) 11/23/20 05:29 Lymph # (Auto) 1.3 K/mm3 (1.2-5.4) 11/23/20 05:29 [place] # (Auto) 0.1 K/mm3 (0.0-0.8) 11/23/20 05:29 Eos # (Auto) 0.0 K/mm3 (0.0-0.4) 11/23/20 05:29 Baso # (Auto) 0.0 K/mm3 (0.0-0.1) 11/23/20 05:29 Seg Neutrophils % 87.4 % (40.0-70.0) H 11/23/20 05:29 Seg Neutrophils # 10.2 K/mm3 (1.8-7.7) H 11/23/20 05:29 Sodium 142 mmol/L (137-145) 11/23/20 05:29 Potassium 3.5 mmol/L (3.6-5.0) L 11/23/20 05:29 Chloride 105.1 mmol/L (98-107) 11/23/20 05:29 Carbon Dioxide 23 mmol/L (22-30) 11/23/20 05:29 Anion Gap 17 mmol/L 11/23/20 05:29 BUN 14 mg/dL (9-20) 11/23/20 05:29 Creatinine 0.6 mg/dL (0.8-1.3) L 11/23/20 05:29 Estimated GFR > 60 ml/min 11/23/20 05:29 BUN/Creatinine Ratio 23 % 11/23/20 05:29 Glucose 133 mg/dL (75-100) H 11/23/20 05:29 POC Glucose 107 mg/dL (70-105) H 11/22/20 19:42 Calcium 8.7 mg/dL (8.4-10.2) 11/23/20 05:29 Magnesium 2.10 mg/dL (1.7-2.3) 11/22/20 23:02 Total Bilirubin 0.40 mg/dL (0.1-1.2) 11/23/20 05:29 AST 33 units/L (5-40) 11/23/20 05:29 ALT 12 units/L (7-56) 11/23/20 05:29 Alkaline Phosphatase 110 units/L (35-129) 11/23/20 05:29 Ammonia 36.0 umol/L (25-60) 11/22/20 23:02 Total Protein 7.2 g/dL (6.3-8.2) 11/23/20 05:29 Albumin 4.2 g/dL (3.9-5) 11/23/20 05:29 Albumin/Globulin Ratio 1.4 % 11/23/20 05:29 Amylase 588 units/L (27-131) H 11/22/20 23:02 Urine Color Yellow (Yellow) 11/22/20 06:54 Urine Turbidity Hazy (Clear) 11/22/20 06:54 Urine pH 6.0 (5.0-7.0) 11/22/20 06:54 Ur Specific [place] 1.031 (1.003-1.030) H 11/22/20 06:54 Urine Protein 100 mg/dl mg/dL (Negative) 11/22/20 06:54 Urine Glucose (UA) Neg mg/dL (Negative) 11/22/20 06:54 Urine Ketones 80 mg/dL (Negative) 11/22/20 06:54 Urine Blood Neg (Negative) 11/22/20 06:54 Urine Nitrite Neg (Negative) 11/22/20 06:54 Urine Bilirubin Neg (Negative) 11/22/20 06:54 Urine Urobilinogen 2.0 mg/dL (<2.0) 11/22/20 06:54 Ur Leukocyte Esterase Neg (Negative) 11/22/20 06:54 Urine WBC (Auto) 1.0 /HPF (0.0-6.0) 11/22/20 06:54 Urine RBC (Auto) 3.0 /HPF (0.0-6.0) 11/22/20 06:54 U Epithel Cells (Auto) < 1.0 /HPF (0-13.0) 11/22/20 06:54 Urine Mucus 3+ /HPF 11/22/20 06:54 Salicylates < 0.3 mg/dL (2.8-20.0) L 11/22/20 05:24 Urine Opiates Screen Presumptive negative 11/22/20 06:54 Urine Methadone Screen Presumptive negative 11/22/20 06:54 Acetaminophen 5.0 ug/mL (10.0-30.0) L 11/22/20 05:24 Ur Barbiturates Screen Presumptive negative 11/22/20 06:54 Ur Phencyclidine Scrn Presumptive negative 11/22/20 06:54 Ur Amphetamines Screen Presumptive negative 11/22/20 06:54 U Benzodiazepines Scrn Presumptive positive 11/22/20 06:54 Urine Cocaine Screen Presumptive negative 11/22/20 06:54 U Marijuana (THC) Screen Presumptive positive 11/22/20 06:54 Drugs of Abuse Note Disclamer 11/22/20 06:54 [place]ellez/IV: Voiding Method Condom Catheter Active Medications - Current Medications Current Medications: Generic Name Dose Route Start Last Admin Trade Name Freq PRN Reason Stop Dose Admin Acetaminophen 650 mg 11/22/20 22:10 Acetaminophen 325 Mg Tab PO Q4H PRN Pain MILD(1-3)/Fever >100.5/[place]OLA[place]OS Diphenhydramine HCl 25 mg 11/22/20 21:54 Diphenhydramine 50 Mg/Ml Vial IV Q8H PRN alergic reaction/itching Famotidine 20 mg 11/23/20 10:00 Famotidine 20 Mg/2 Ml Inj IV BID RICO Heparin Sodium (Porcine) 5,000 unit 11/22/20 22:30 11/22/20 23:49 Heparin 5,000 Unit/1 Ml Vial SUB-Q 5,000 unit Q12HR RICO Administration Dextrose/Sodium Chloride 1,000 mls @ 125 mls/hr 11/22/20 23:00 11/23/20 02:42 D5ns IV 125 mls/hr DIRECT RICO Administration Ibuprofen 600 mg 11/22/20 22:10 Ibuprofen 600 Mg Tab PO Q6H PRN Pain, Mild (1-3) Lorazepam 2 mg 11/22/20 22:07 Lorazepam 2 Mg/Ml Vial IV Q1H PRN CIWA-Ar 8-15 Lorazepam 4 mg 11/22/20 22:07 Lorazepam 2 Mg/Ml Vial IV Q1H PRN CIWA-Ar 16-25 Methylprednisolone Sodium Succinate 80 mg 11/22/20 22:00 11/23/20 03:55 Methylprednisolone Sod Succinate 125 Mg/2 Ml Inj IV 80 mg Q6H RICO Administration Metoclopramide HCl 10 mg 11/22/20 22:10 Metoclopramide 10 Mg/2 Ml Inj IV Q6H PRN Nausea And Vomiting Ondansetron HCl 4 mg 11/22/20 22:10 11/22/20 23:49 Ondansetron 4 Mg/2 Ml Inj IV 4 mg Q8H PRN Administration Nausea And Vomiting Sodium Chloride 10 ml 11/23/20 10:00 Sodium Chloride 0.9% 10 Ml Flush Syringe IV BID RICO Sodium Chloride 10 ml 11/22/20 22:10 Sodium Chloride 0.9% 10 Ml Flush Syringe IV PRN PRN LINE FLUSH
[2020-11-23] MEDS ORDERED: POTASSIUM CHLORIDE ER 20 MEQ TAB PO SCH (08:00)
[2020-11-23] MEDS: FAMOTIDINE 20 MG/2 ML INJ IV SCH ×2 (10:06→22:13)
[2020-11-23] MEDS: HEPARIN 5,000 UNIT/1 ML VIAL SUB-Q SCH ×2 (10:07→22:14)
--- NOTE | 2020-11-23 11:03 | XRay Report ---
XR chest 1V ap INDICATION / CLINICAL INFORMATION: To assess for aspiration pneumonia. COMPARISON: None available. FINDINGS: SUPPORT DEVICES: None. HEART /PULMONARY VASCULATURE: No significant abnormality. LUNGS / PLEURA: Lungs are clear. No pneumothorax. ADDITIONAL FINDINGS: No significant additional findings. IMPRESSION: 1. No acute findings. Signer Name: Quinton Gary MD Signed: 11/23/2020 10:59 AM Workstation Name: [id number]
--- NOTE | 2020-11-23 11:51 | Progress Note ---
Subjective - Reason for Consult Consult date: 11/23/20 Reason for consult: Possible OD - Chief Complaint Chief complaint: The patient was seen today, he is awake. His nurse is at bedside. She says the patient has been confused, agitated and attempting to get out of bed. During my evaluation of the patient today, he is mumbling to himself as I'm entering the room. He is confused. His speech is not clear and he is difficult to follow. When asking him why was he here, he mumbled "oxycodone." When asking the patient if he took them, he nodded his head. When asking the patient was he trying to hurt himself, he looked at me and mumbled "yes." He then started making these gagging noises. REVIEW OF SYSTEMS Mood Disorder, Unspecified MENTAL STATUS EXAMINATION General Appearance: Dressed appropriately, saliva on upper half of bed Behavior: bizarre Assessment Schizoaffective Disorder Treatment Plan Valproic 500mg IV q12h Haldol 5mg IM q6h prn agitation Agree with Lorazepam Sitter: Per primary Medical: Primary Disposition: Recommend acute psychiatric inpatient treatment Will follow. Thank you for this consult. Case staffed with Dr. Newberry. Mental Status Exam - Vital signs Last Vital Signs Temp 98.9 F 11/23/20 06:00 Pulse 68 11/23/20 06:00 Resp 20 11/23/20 06:00 BP 136/82 11/23/20 06:00 Pulse Ox 98 11/23/20 03:00
[2020-11-23] MEDS: VALPROATE SODIUM 500 MG in SODIUM CHLORIDE 0.9% 100 ML IV SCH ×2 (12:42→21:22)
[2020-11-23] MEDS: LORazepam 2 MG/ML VIAL IV PRN ×2 (19:00→23:53)
[2020-11-23] MEDS: HALOPERIDOL LACTATE 5 MG/1 ML INJ IM PRN (21:45)
[2020-11-24] MEDS: methylPREDNISolone Sod Succinate 125 MG/2 ML INJ IV SCH ×4 (04:19→22:05)
--- NOTE | 2020-11-24 08:58 | Progress Note ---
Assessment and Plan Assessment and plan: (1) Acute encephalopathy Current Visit: Yes Status: Acute Plan to address problem: Secondary to opiate dependence and opiate withdrawal Opiates was negative on the urine drug screen (2) Hypokalemia Current Visit: Yes Status: Acute Plan to address problem: Supplemented (3) Opiate withdrawal Current Visit: Yes Status: Acute Plan to address problem: IV fluids for now [facility] protocol mental health consult (4) Polysubstance abuse Current Visit: Yes Status: Chronic Plan to address problem: Patient is positive for THC and benzos Patient counseled Mental health consult (5) DVT prophylaxis Current Visit: Yes Status: Acute Plan to address problem: Heparin and GI prophylaxis 11/23/2020 -Patient was still confused, was mumbling -We will keep the patient in the hospital until he is fully alert and oriented -We will follow mental health recommendations -Management plan was discussed with his mother over the phone 11/24/2020 -Opioid withdrawal -Patient was seen by psych and recommend inpatient psych admission. Will follow with psych. History Interval history: Patient was seen and evaluated this morning Patient was more alert today, he said he wants me to call his mom and go home Hospitalist Physical - Physical exam Narrative exam: Not in cardiopulmonary distress. The patient appeared well nourished and normally developed. Vital signs as documented. Head exam is unremarkable. No scleral icterus . Neck is without jugular venous distension, thyromegaly, or carotid bruits. Lungs are clear to auscultation. Cardiac exam reveals regular rate and Rhythm. Abdominal exam reveals normal bowel sounds, nontender, no organomegaly. Extremities are nonedematous and both femoral and pedal pulses are normal. SEISMOGRAPHER: Patient is confused but able to communicate. Patient is on four-point restraints - Constitutional Vitals: Temp Pulse Resp BP Pulse Ox 98.5 F 56 L 18 137/81 100 11/24/20 04:40 11/24/20 04:40 11/24/20 04:40 11/24/20 04:40 11/24/20 04:40 General appearance: Present: no acute distress, well-nourished Results - Labs CBC & Chem 7: 11/23/20 05:29 11/23/20 05:29 Labs: Laboratory Last Values WBC 11.7 K/mm3 (4.5-11.0) H 11/23/20 05:29 RBC 4.62 M/mm3 (3.65-5.03) 11/23/20 05:29 Hgb 12.8 gm/dl (11.8-15.2) 11/23/20 05:29 Hct 38.7 % (35.5-45.6) 11/23/20 05:29 MCV 84 fl (84-94) 11/23/20 05:29 MCH 28 pg (28-32) 11/23/20 05:29 MCHC 33 % (32-34) 11/23/20 05:29 RDW 14.3 % (13.2-15.2) 11/23/20 05:29 Plt Count 324 K/mm3 (140-440) 11/23/20 05:29 Lymph % (Auto) 11.1 % (13.4-35.0) L 11/23/20 05:29 [place] % (Auto) 1.2 % (0.0-7.3) 11/23/20 05:29 Eos % (Auto) 0.0 % (0.0-4.3) 11/23/20 05:29 Baso % (Auto) 0.3 % (0.0-1.8) 11/23/20 05:29 Lymph # (Auto) 1.3 K/mm3 (1.2-5.4) 11/23/20 05:29 [place] # (Auto) 0.1 K/mm3 (0.0-0.8) 11/23/20 05:29 Eos # (Auto) 0.0 K/mm3 (0.0-0.4) 11/23/20 05:29 Baso # (Auto) 0.0 K/mm3 (0.0-0.1) 11/23/20 05:29 Seg Neutrophils % 87.4 % (40.0-70.0) H 11/23/20 05:29 Seg Neutrophils # 10.2 K/mm3 (1.8-7.7) H 11/23/20 05:29 Sodium 142 mmol/L (137-145) 11/23/20 05:29 Potassium 3.5 mmol/L (3.6-5.0) L 11/23/20 05:29 Chloride 105.1 mmol/L (98-107) 11/23/20 05:29 Carbon Dioxide 23 mmol/L (22-30) 11/23/20 05:29 Anion Gap 17 mmol/L 11/23/20 05:29 BUN 14 mg/dL (9-20) 11/23/20 05:29 Creatinine 0.6 mg/dL (0.8-1.3) L 11/23/20 05:29 Estimated GFR > 60 ml/min 11/23/20 05:29 BUN/Creatinine Ratio 23 % 11/23/20 05:29 Glucose 133 mg/dL (75-100) H 11/23/20 05:29 POC Glucose 107 mg/dL (70-105) H 11/22/20 19:42 Calcium 8.7 mg/dL (8.4-10.2) 11/23/20 05:29 Magnesium 2.10 mg/dL (1.7-2.3) 11/22/20 23:02 Total Bilirubin 0.40 mg/dL (0.1-1.2) 11/23/20 05:29 AST 33 units/L (5-40) 11/23/20 05:29 ALT 12 units/L (7-56) 11/23/20 05:29 Alkaline Phosphatase 110 units/L (35-129) 11/23/20 05:29 Ammonia 36.0 umol/L (25-60) 11/22/20 23:02 Total Protein 7.2 g/dL (6.3-8.2) 11/23/20 05:29 Albumin 4.2 g/dL (3.9-5) 11/23/20 05:29 Albumin/Globulin Ratio 1.4 % 11/23/20 05:29 Amylase 588 units/L (27-131) H 11/22/20 23:02 Urine Color Yellow (Yellow) 11/22/20 06:54 Urine Turbidity Hazy (Clear) 11/22/20 06:54 Urine pH 6.0 (5.0-7.0) 11/22/20 06:54 Ur Specific [place] 1.031 (1.003-1.030) H 11/22/20 06:54 Urine Protein 100 mg/dl mg/dL (Negative) 11/22/20 06:54 Urine Glucose (UA) Neg mg/dL (Negative) 11/22/20 06:54 Urine Ketones 80 mg/dL (Negative) 11/22/20 06:54 Urine Blood Neg (Negative) 11/22/20 06:54 Urine Nitrite Neg (Negative) 11/22/20 06:54 Urine Bilirubin Neg (Negative) 11/22/20 06:54 Urine Urobilinogen 2.0 mg/dL (<2.0) 11/22/20 06:54 Ur Leukocyte Esterase Neg (Negative) 11/22/20 06:54 Urine WBC (Auto) 1.0 /HPF (0.0-6.0) 11/22/20 06:54 Urine RBC (Auto) 3.0 /HPF (0.0-6.0) 11/22/20 06:54 U Epithel Cells (Auto) < 1.0 /HPF (0-13.0) 11/22/20 06:54 Urine Mucus 3+ /HPF 11/22/20 06:54 Salicylates < 0.3 mg/dL (2.8-20.0) L 11/22/20 05:24 Urine Opiates Screen Presumptive negative 11/22/20 06:54 Urine Methadone Screen Presumptive negative 11/22/20 06:54 Acetaminophen 5.0 ug/mL (10.0-30.0) L 11/22/20 05:24 Ur Barbiturates Screen Presumptive negative 11/22/20 06:54 Ur Phencyclidine Scrn Presumptive negative 11/22/20 06:54 Ur Amphetamines Screen Presumptive negative 11/22/20 06:54 U Benzodiazepines Scrn Presumptive positive 11/22/20 06:54 Urine Cocaine Screen Presumptive negative 11/22/20 06:54 U Marijuana (THC) Screen Presumptive positive 11/22/20 06:54 Drugs of Abuse Note Disclamer 11/22/20 06:54 Tellez/IV: Voiding Method Condom Catheter Active Medications - Current Medications Current Medications: Generic Name Dose Route Start Last Admin Trade Name Freq PRN Reason Stop Dose Admin Acetaminophen 650 mg 11/22/20 22:10 Acetaminophen 325 Mg Tab PO Q4H PRN Pain MILD(1-3)/Fever >100.5/BOLAÑOS Diphenhydramine HCl 25 mg 11/22/20 21:54 Diphenhydramine 50 Mg/Ml Vial IV Q8H PRN alergic reaction/itching Famotidine 20 mg 11/23/20 10:00 11/23/20 22:13 Famotidine 20 Mg/2 Ml Inj IV 20 mg BID RICO Administration Haloperidol Lactate 5 mg 11/23/20 11:52 11/23/20 21:45 Haloperidol Lactate 5 Mg/1 Ml Inj IM 5 mg Q6H PRN Administration Agitation Heparin Sodium (Porcine) 5,000 unit 11/22/20 22:30 11/23/20 22:14 Heparin 5,000 Unit/1 Ml Vial SUB-Q 5,000 unit Q12HR RICO Administration Dextrose/Sodium Chloride 1,000 mls @ 125 mls/hr 11/22/20 23:00 11/23/20 19:00 D5ns IV 125 mls/hr DIRECT RICO Administration Valproate Sodium 500 mg/ 105 mls @ 100 mls/hr 11/23/20 12:00 11/23/20 21:22 Sodium Chloride IV 100 mls/hr Q12HR RICO Administration Ibuprofen 600 mg 11/22/20 22:10 Ibuprofen 600 Mg Tab PO Q6H PRN Pain, Mild (1-3) Lorazepam 2 mg 11/22/20 22:07 11/23/20 23:53 Lorazepam 2 Mg/Ml Vial IV 2 mg Q1H PRN Administration [facility]-Ar 8-15 Lorazepam 4 mg 11/22/20 22:07 11/23/20 21:35 Lorazepam 2 Mg/Ml Vial IV 4 mg Q1H PRN Administration [place]-Ar 16-25 Methylprednisolone Sodium Succinate 80 mg 11/22/20 22:00 11/24/20 04:19 Methylprednisolone Sod Succinate 125 Mg/2 Ml Inj IV 80 mg Q6H RICO Administration Metoclopramide HCl 10 mg 11/22/20 22:10 Metoclopramide 10 Mg/2 Ml Inj IV Q6H PRN Nausea And Vomiting Ondansetron HCl 4 mg 11/22/20 22:10 11/22/20 23:49 Ondansetron 4 Mg/2 Ml Inj IV 4 mg Q8H PRN Administration Nausea And Vomiting Sodium Chloride 10 ml 11/23/20 10:00 11/23/20 22:14 Sodium Chloride 0.9% 10 Ml Flush Syringe IV 10 ml BID RICO Administration Sodium Chloride 10 ml 11/22/20 22:10 Sodium Chloride 0.9% 10 Ml Flush Syringe IV PRN PRN LINE FLUSH Nutrition/Malnutrition Assess - Dietary Evaluation Nutrition/Malnutrition Findings: Nutrition Notes Start: 11/23/20 10:13 Freq: Status: Active Protocol: Document 11/23/20 10:13 SYDNEY (Rec: 11/23/20 10:21 SYDNEY [id number]) Nutrition Notes Need for Assessment generated from: educational administration teacher,MST Initial or Follow up Assessment Other Pertinent Diagnosis Acute encephalopathy, Opiate withdrawal, Polysubstance dependence Current Diet Regular Labs/Tests K 3.5 Amylase 588 (11/22) Pertinent Medications D5NS at 125ml/hr, Solumedrol, 40mEq KCl x 1 dose Height 5 ft 9 in Weight 90.718 kg [place] Body Weight (kg) 72.72 BMI 29.5 Weight Status Overweight Subjective/Other Information Pt screened for for malnutrition risk, chewing difficulty and skin risk ( David score: 10). Pt on CIWA protocol for opiate withdrawal. Pt extremely lethargic at this time. Burn Absent Trauma Absent GI Symptoms Nausea Skin Integrity/Comment (L) wrist wound Minimum of two criteria No #1 Nutrition Diagnosis Predicted suboptimal energy intake Etiology opiate withdrawal As Evidenced by Signs and Symptoms pt admitted with AMS and possible swallowing difficulty Is patient on ventilator? No Is Patient Ambulatory and/or Out of Bed No REE-([place] [facility]-confined to bed) [phone] Calculation Used for Recommendations [place] Additional Notes Pro needs 0.8-1g/k-91g/ day Fluid needs 1ml/kcal Nutrition Intervention Change Diet Order: Continue current diet order as tolerated Goal #1 PO tolerance Goal #2 PO intake to meet at least 75% energy and pro needs Anticipated Discharge Needs: None at this time Follow-Up By: 11/25/20 Additional Comments F/U: intakes, MST assessment
[2020-11-24] MEDS: FAMOTIDINE 20 MG/2 ML INJ IV SCH ×2 (10:00→22:06)
[2020-11-24] MEDS: HEPARIN 5,000 UNIT/1 ML VIAL SUB-Q SCH ×2 (10:00→22:06)
[2020-11-24] MEDS: VALPROATE SODIUM 500 MG in SODIUM CHLORIDE 0.9% 100 ML IV SCH ×2 (10:00→22:07)
[2020-11-24] MEDS: LORazepam 2 MG/ML VIAL IV PRN ×2 (15:23→22:05)
[2020-11-24] MEDS: HALOPERIDOL LACTATE 5 MG/1 ML INJ IM PRN (18:01)
[2020-11-24] MEDS: diphenhydrAMINE 50 MG/ML VIAL IV PRN (22:05)
[2020-11-25] MEDS: methylPREDNISolone Sod Succinate 125 MG/2 ML INJ IV SCH ×2 (05:29→09:52)
--- NOTE | 2020-11-25 08:00 | Progress Note ---
Subjective - Reason for Consult Consult date: 11/25/20 Reason for consult: OD - Chief Complaint Chief complaint: Per Nurse Note: Patient agitated pulling out IVs getting out of bed and yelling. Medicated with Haldol 5mg as ordered The patient was seen today, he is somnolent and in restraints. I do arouse him slightly. He mumbles and goes back out. REVIEW OF SYSTEMS Mood Disorder, Unspecified MENTAL STATUS EXAMINATION General Appearance: Dressed appropriately, saliva on upper half of bed Behavior: bizarre Assessment Schizoaffective Disorder Treatment Plan 1013 Changed Valproic 500mg IV q8h Haldol 5mg IM q6h prn agitation Agree with Lorazepam Sitter: Per primary Medical: Primary Disposition: Recommend acute psychiatric inpatient treatment. The patient states he attempted to end his life during last evaluation. Will follow. Thank you for this consult. Case staffed with Dr. Newberry. Mental Status Exam - Vital signs Last Vital Signs Temp 99.2 F 11/24/20 22:05 Pulse 74 11/24/20 22:05 Resp 16 11/24/20 22:05 BP 144/77 11/24/20 22:05 Pulse Ox 97 11/24/20 22:05
--- NOTE | 2020-11-25 09:12 | Progress Note ---
Assessment and Plan Assessment and plan: (1) Acute encephalopathy Current Visit: Yes Status: Acute Plan to address problem: Secondary to opiate dependence and opiate withdrawal Opiates was negative on the urine drug screen (2) Hypokalemia Current Visit: Yes Status: Acute Plan to address problem: Supplemented (3) Opiate withdrawal Current Visit: Yes Status: Acute Plan to address problem: IV fluids for now [facility] protocol mental health consult (4) Polysubstance abuse Current Visit: Yes Status: Chronic Plan to address problem: Patient is positive for THC and benzos Patient counseled Mental health consult (5) DVT prophylaxis Current Visit: Yes Status: Acute Plan to address problem: Heparin and GI prophylaxis 11/23/2020 -Patient was still confused, was mumbling -We will keep the patient in the hospital until he is fully alert and oriented -We will follow mental health recommendations -Management plan was discussed with his mother over the phone 11/24/2020 -Opioid withdrawal -Patient was seen by psych and recommend inpatient psych admission. Will follow with psych. 11/25/2020 -Patient admitted for opioid withdrawal -Patient was evaluated by psych and psych recommend inpatient psych admission, per psych patient tries to end his life -UDS is positive for benzo and marijuana -Patient wants to go home, patient was agitated and confused. I called his mom and she wants him to be treated in the hospital until he is stable. -Patient was reevaluated by psych and recommended no need for inpatient psych admission. -Patient can be discharged tomorrow morning. History Interval history: Patient was seen and evaluated this morning Patient was more alert today, he said he wants me to call his mom and go home Hospitalist Physical - Physical exam Narrative exam: Not in cardiopulmonary distress. The patient appeared well nourished and normally developed. Vital signs as documented. Head exam is unremarkable. No scleral icterus . Neck is without jugular venous distension, thyromegaly, or carotid bruits. Lungs are clear to auscultation. Cardiac exam reveals regular rate and Rhythm. Abdominal exam reveals normal bowel sounds, nontender, no organomegaly. Extremities are nonedematous and both femoral and pedal pulses are normal. SAMPLE CHECKER: Patient was alert and oriented and off restraints. - Constitutional Vitals: Temp Pulse Resp BP Pulse Ox 99.2 F 74 16 144/77 97 11/24/20 22:05 11/24/20 22:05 11/24/20 22:05 11/24/20 22:05 11/24/20 22:05 General appearance: Present: no acute distress, well-nourished Results - Labs CBC & Chem 7: 11/23/20 05:29 11/23/20 05:29 Labs: Laboratory Last Values WBC 11.7 K/mm3 (4.5-11.0) H 11/23/20 05:29 RBC 4.62 M/mm3 (3.65-5.03) 11/23/20 05:29 Hgb 12.8 gm/dl (11.8-15.2) 11/23/20 05:29 Hct 38.7 % (35.5-45.6) 11/23/20 05:29 MCV 84 fl (84-94) 11/23/20 05:29 MCH 28 pg (28-32) 11/23/20 05:29 MCHC 33 % (32-34) 11/23/20 05:29 RDW 14.3 % (13.2-15.2) 11/23/20 05:29 Plt Count 324 K/mm3 (140-440) 11/23/20 05:29 Lymph % (Auto) 11.1 % (13.4-35.0) L 11/23/20 05:29 [place] % (Auto) 1.2 % (0.0-7.3) 11/23/20 05:29 Eos % (Auto) 0.0 % (0.0-4.3) 11/23/20 05:29 Baso % (Auto) 0.3 % (0.0-1.8) 11/23/20 05:29 Lymph # (Auto) 1.3 K/mm3 (1.2-5.4) 11/23/20 05:29 [place] # (Auto) 0.1 K/mm3 (0.0-0.8) 11/23/20 05:29 Eos # (Auto) 0.0 K/mm3 (0.0-0.4) 11/23/20 05:29 Baso # (Auto) 0.0 K/mm3 (0.0-0.1) 11/23/20 05:29 Seg Neutrophils % 87.4 % (40.0-70.0) H 11/23/20 05:29 Seg Neutrophils # 10.2 K/mm3 (1.8-7.7) H 11/23/20 05:29 Sodium 142 mmol/L (137-145) 11/23/20 05:29 Potassium 3.5 mmol/L (3.6-5.0) L 11/23/20 05:29 Chloride 105.1 mmol/L (98-107) 11/23/20 05:29 Carbon Dioxide 23 mmol/L (22-30) 11/23/20 05:29 Anion Gap 17 mmol/L 11/23/20 05:29 BUN 14 mg/dL (9-20) 11/23/20 05:29 Creatinine 0.6 mg/dL (0.8-1.3) L 11/23/20 05:29 Estimated GFR > 60 ml/min 11/23/20 05:29 BUN/Creatinine Ratio 23 % 11/23/20 05:29 Glucose 133 mg/dL (75-100) H 11/23/20 05:29 POC Glucose 107 mg/dL (70-105) H 11/22/20 19:42 Calcium 8.7 mg/dL (8.4-10.2) 11/23/20 05:29 Magnesium 2.10 mg/dL (1.7-2.3) 11/22/20 23:02 Total Bilirubin 0.40 mg/dL (0.1-1.2) 11/23/20 05:29 AST 33 units/L (5-40) 11/23/20 05:29 ALT 12 units/L (7-56) 11/23/20 05:29 Alkaline Phosphatase 110 units/L (35-129) 11/23/20 05:29 Ammonia 36.0 umol/L (25-60) 11/22/20 23:02 Total Protein 7.2 g/dL (6.3-8.2) 11/23/20 05:29 Albumin 4.2 g/dL (3.9-5) 11/23/20 05:29 Albumin/Globulin Ratio 1.4 % 11/23/20 05:29 Amylase 588 units/L (27-131) H 11/22/20 23:02 Urine Color Yellow (Yellow) 11/22/20 06:54 Urine Turbidity Hazy (Clear) 11/22/20 06:54 Urine pH 6.0 (5.0-7.0) 11/22/20 06:54 Ur Specific [place] 1.031 (1.003-1.030) H 11/22/20 06:54 Urine Protein 100 mg/dl mg/dL (Negative) 11/22/20 06:54 Urine Glucose (UA) Neg mg/dL (Negative) 11/22/20 06:54 Urine Ketones 80 mg/dL (Negative) 11/22/20 06:54 Urine Blood Neg (Negative) 11/22/20 06:54 Urine Nitrite Neg (Negative) 11/22/20 06:54 Urine Bilirubin Neg (Negative) 11/22/20 06:54 Urine Urobilinogen 2.0 mg/dL (<2.0) 11/22/20 06:54 Ur Leukocyte Esterase Neg (Negative) 11/22/20 06:54 Urine WBC (Auto) 1.0 /HPF (0.0-6.0) 11/22/20 06:54 Urine RBC (Auto) 3.0 /HPF (0.0-6.0) 11/22/20 06:54 U Epithel Cells (Auto) < 1.0 /HPF (0-13.0) 11/22/20 06:54 Urine Mucus 3+ /HPF 11/22/20 06:54 Salicylates < 0.3 mg/dL (2.8-20.0) L 11/22/20 05:24 Urine Opiates Screen Presumptive negative 11/22/20 06:54 Urine Methadone Screen Presumptive negative 11/22/20 06:54 Acetaminophen 5.0 ug/mL (10.0-30.0) L 11/22/20 05:24 Ur Barbiturates Screen Presumptive negative 11/22/20 06:54 Ur Phencyclidine Scrn Presumptive negative 11/22/20 06:54 Ur Amphetamines Screen Presumptive negative 11/22/20 06:54 U Benzodiazepines Scrn Presumptive positive 11/22/20 06:54 Urine Cocaine Screen Presumptive negative 11/22/20 06:54 U Marijuana (THC) Screen Presumptive positive 11/22/20 06:54 Drugs of Abuse Note Disclamer 11/22/20 06:54 Tellez/IV: Voiding Method Incontinent Active Medications - Current Medications Current Medications: Generic Name Dose Route Start Last Admin Trade Name Freq PRN Reason Stop Dose Admin Acetaminophen 650 mg 11/22/20 22:10 Acetaminophen 325 Mg Tab PO Q4H PRN Pain MILD(1-3)/Fever >100.5/BOLAÑOS Diphenhydramine HCl 25 mg 11/22/20 21:54 11/24/20 22:05 Diphenhydramine 50 Mg/Ml Vial IV 25 mg Q8H PRN Administration alergic reaction/itching Famotidine 20 mg 11/23/20 10:00 11/24/20 22:06 Famotidine 20 Mg/2 Ml Inj IV 20 mg BID RICO Administration Haloperidol Lactate 5 mg 11/23/20 11:52 11/24/20 18:01 Haloperidol Lactate 5 Mg/1 Ml Inj IM 5 mg Q6H PRN Administration Agitation Heparin Sodium (Porcine) 5,000 unit 11/22/20 22:30 11/24/20 22:06 Heparin 5,000 Unit/1 Ml Vial SUB-Q 5,000 unit Q12HR RICO Administration Dextrose/Sodium Chloride 1,000 mls @ 125 mls/hr 11/22/20 23:00 11/23/20 19:00 D5ns IV 125 mls/hr DIRECT RICO Administration Valproate Sodium 500 mg/ 105 mls @ 100 mls/hr 11/25/20 08:00 Sodium Chloride IV Q8H RICO Ibuprofen 600 mg 11/22/20 22:10 Ibuprofen 600 Mg Tab PO Q6H PRN Pain, Mild (1-3) Lorazepam 2 mg 11/22/20 22:07 11/24/20 22:05 Lorazepam 2 Mg/Ml Vial IV 2 mg Q1H PRN Administration AJAYCO-Ronnie 8-15 Lorazepam 4 mg 11/22/20 22:07 11/23/20 21:35 Lorazepam 2 Mg/Ml Vial IV 4 mg Q1H PRN Administration YESY-Ar 16-25 Methylprednisolone Sodium Succinate 80 mg 11/22/20 22:00 11/25/20 05:29 Methylprednisolone Sod Succinate 125 Mg/2 Ml Inj IV 80 mg Q6H RICO Administration Metoclopramide HCl 10 mg 11/22/20 22:10 Metoclopramide 10 Mg/2 Ml Inj IV Q6H PRN Nausea And Vomiting Ondansetron HCl 4 mg 11/22/20 22:10 11/22/20 23:49 Ondansetron 4 Mg/2 Ml Inj IV 4 mg Q8H PRN Administration Nausea And Vomiting Sodium Chloride 10 ml 11/23/20 10:00 11/24/20 22:07 Sodium Chloride 0.9% 10 Ml Flush Syringe IV 10 ml BID RICO Administration Sodium Chloride 10 ml 11/22/20 22:10 Sodium Chloride 0.9% 10 Ml Flush Syringe IV PRN PRN LINE FLUSH Nutrition/Malnutrition Assess - Dietary Evaluation Nutrition/Malnutrition Findings: Nutrition Notes Start: 11/23/20 10:13 Freq: Status: Active Protocol: Document 11/23/20 10:13 SYDNEY (Rec: 11/23/20 10:21 ARONALL [id number]) Nutrition Notes Need for Assessment generated from: plastic and reconstructive surgeon,MST Initial or Follow up Assessment Other Pertinent Diagnosis Acute encephalopathy, Opiate withdrawal, Polysubstance dependence Current Diet Regular Labs/Tests K 3.5 Amylase 588 (11/22) Pertinent Medications D5NS at 125ml/hr, Solumedrol, 40mEq KCl x 1 dose Height 5 ft 9 in Weight 90.718 kg [place] Body Weight (kg) 72.72 BMI 29.5 Weight Status Overweight Subjective/Other Information Pt screened for for malnutrition risk, chewing difficulty and skin risk ( David score: 10). Pt on CIWA protocol for opiate withdrawal. Pt extremely lethargic at this time. Burn Absent Trauma Absent GI Symptoms Nausea Skin Integrity/Comment (L) wrist wound Minimum of two criteria No #1 Nutrition Diagnosis Predicted suboptimal energy intake Etiology opiate withdrawal As Evidenced by Signs and Symptoms pt admitted with AMS and possible swallowing difficulty Is patient on ventilator? No Is Patient Ambulatory and/or Out of Bed No REE-([facility]-confined to bed) 9632.720 Calculation Used for Recommendations [facility] Additional Notes Pro needs 0.8-1g/k-91g/ day Fluid needs 1ml/kcal Nutrition Intervention Change Diet Order: Continue current diet order as tolerated Goal #1 PO tolerance Goal #2 PO intake to meet at least 75% energy and pro needs Anticipated Discharge Needs: None at this time Follow-Up By: 11/25/20 Additional Comments F/U: intakes, MST assessment
[2020-11-25] MEDS: FAMOTIDINE 20 MG/2 ML INJ IV SCH ×3 (09:52→21:15)
[2020-11-25] MEDS: HEPARIN 5,000 UNIT/1 ML VIAL SUB-Q SCH ×3 (09:52→21:15)
[2020-11-25] MEDS: VALPROATE SODIUM 500 MG in SODIUM CHLORIDE 0.9% 100 ML IV SCH ×3 (09:53→23:16)
--- NOTE | 2020-11-25 12:43 | Event Note ---
Date: 11/25/20 Got a call from nurse stating that mom wanted to speak with me concerning the patient and was at the patient's bedside. Called mom from hospital phone and spoke with her concerning the patient. Mom is wanting the patient to be discharged in her care and states it was a misunderstanding. I went back and reevaluated the patient. He is totally different than this morning. He is sitting on side of the bed eating. He is calm, cooperative and pleasant. The patient is conversational. His speech is garbled. The patient says he bit his tongue. he denies SI/HI or any fear of endangerment. The patient did not remember telling me this. He says he's never attempted suicide and has never felt like this. Mom agrees and says the patient wasn't trying to do any harm to himself. She says the patient lives her and she keeps an eye on him all the time. She is wanting the patient home with her and has no reservations about caring for him at home. Advised the patient and mom that if any SI or feelings of endangerment are to arise they are to seek immediate assistance. d/c 1013 Updated disposition: Do not recommend acute psychiatric inpatient treatment. The assessors to give the patient resources for outpatient psych. The patient to follow up with outpatient psych in 7 to 14 days upon discharge. Case staffed with Dr. Newberry
--- NOTE | 2020-11-25 14:40 | Cat Scan Report ---
CT ABDOMEN AND PELVIS WITH CONTRAST INDICATION / CLINICAL INFORMATION: vomiting. TECHNIQUE: Axial CT images were obtained through the abdomen and pelvis after 100 cc Omnipaque 300 milligrams pe rcent IV contrast. All CT scans at this location are performed using CT dose reduction for ALARA by means of automated exposure control. COMPARISON: None available. FINDINGS: LOWER CHEST: No significant abnormality. LIVER: No significant abnormality. GALLBLADDER: No significant abnormality. BILE DUCTS: No significant abnormality. PANCREAS: No significant abnormality. SPLEEN: No significant abnormality. ADRENALS: No significant abnormality. RIGHT KIDNEY and URETER: No significant abnormality. LEFT KIDNEY and URETER: No significant abnormality. STOMACH and SMALL BOWEL: No significant abnormality. COLON: No significant abnormality. APPENDIX: No significant abnormality. PERITONEUM: No free fluid. No free air. No fluid collection. LYMPH NODES: No significant adenopathy. AORTA and ARTERIES: No significant abnormality. IVC and VEINS: No significant abnormality. URINARY BLADDER: No significant abnormality. REPRODUCTIVE ORGANS: No significant abnormality. ADDITIONAL FINDINGS: None. SKELETAL SYSTEM: No significant abnormality. IMPRESSION: 1. No significant abnormality. Signer Name: Mateo June MD Signed: 11/22/2020 4:51 PM Workstation Name: [id number]
[2020-11-25] MEDS: diphenhydrAMINE 50 MG/ML VIAL IV PRN ×2 (16:13→23:16)
[2020-11-25] MEDS: LORazepam 2 MG/ML VIAL IV PRN (20:42)
[2020-11-26] MEDS: LORazepam 2 MG/ML VIAL IV PRN (03:10)
[2020-11-26] MEDS: VALPROATE SODIUM 500 MG in SODIUM CHLORIDE 0.9% 100 ML IV SCH (08:27)
[2020-11-26] MEDS ORDERED: FAMOTIDINE 20 MG TAB PO SCH (10:00)
--- NOTE | 2020-11-26 10:07 | Discharge Summary ---
Providers - Providers Date of Admission: 11/24/20 13:00 Attending physician: MARTIN LOVETT MD 11/22/20 22:15 Consult to Mental Health [CONS] Routine Reason For Exam: Oxycodone dependence and withdrawal Primary care physician: IRONER SOCK Hospitalization Reason for admission: AMS Condition: Stable Hospital course: 34-year-old male with no significant past medical history comes in for vomiting and sweating. Patient is apparently addicted to oxycodone for the last 2 years. Patient apparently takes 30 mg tablets three times a day. Buys oxycodone on the street . Because of oxycodone dependence patient was put on one Suboxone. Patient apparently took-one Suboxone today. Patient was given Narcan by EMS prior to arrival. Patient decreased responsiveness. Also apparently patient defecated on himself while with EMS. No fever or chills. No exposure to coronavirus. (1) Acute encephalopathy Current Visit: Yes Status: Acute Plan to address problem: Secondary to opiate dependence and opiate withdrawal Opiates was negative on the urine drug screen (2) Hypokalemia Current Visit: Yes Status: Acute Plan to address problem: Supplemented (3) Opiate withdrawal Current Visit: Yes Status: Acute Plan to address problem: IV fluids for now [facility] mental health consult (4) Polysubstance abuse Current Visit: Yes Status: Chronic Plan to address problem: Patient is positive for THC and benzos Patient counseled Mental health consult (5) DVT prophylaxis Current Visit: Yes Status: Acute Plan to address problem: Heparin and GI prophylaxis 11/23/2020 -Patient was still confused, was mumbling -We will keep the patient in the hospital until he is fully alert and oriented -We will follow mental health recommendations -Management plan was discussed with his mother over the phone 11/24/2020 -Opioid withdrawal -Patient was seen by psych and recommend inpatient psych admission. Will follow with psych. 11/25/2020 -Patient admitted for opioid withdrawal -Patient was evaluated by psych and psych recommend inpatient psych admission, per psych patient tries to end his life -UDS is positive for benzo and marijuana -Patient wants to go home, patient was agitated and confused. I called his mom and she wants him to be treated in the hospital until he is stable. -Patient was reevaluated by psych and recommended no need for inpatient psych admission. -Patient can be discharged tomorrow morning. 11/26: Per [employer] psych, patient refusing meds and family dose not want any meds. Family taken responsibility for son. Patient on my examination appears very lethargic. Nevertheless the mom wants the patient to go home I last that the mom comes up to the floor evaluates the son prior to the patient being discharged if this is his normal baseline. Disposition: DC-01 TO HOME OR SELFCARE Final Discharge Diagnosis (Prints w/discharge instructions): acute metabolic Encephalopathy Time spent for discharge: 35 mins Core Measure Documentation - Palliative Care Palliative Care/ Comfort Measures: Not Applicable - Core Measures Any of the following diagnoses?: none Exam - Physical Exam Narrative exam: Not in cardiopulmonary distress. The patient appeared well nourished and normally developed. Vital signs as documented. Head exam is unremarkable. No scleral icterus . Neck is without jugular venous distension, thyromegaly, or carotid bruits. Lungs are clear to auscultation. Cardiac exam reveals regular rate and Rhythm. Abdominal exam reveals normal bowel sounds, nontender, no organomegaly. Extremities are nonedematous and both femoral and pedal pulses are normal. [employer] SAL[employer]GER: Patient was alert and oriented and off restraints. - Constitutional Vitals: Temp Pulse Resp BP Pulse Ox 99.1 F 57 L 16 130/77 97 11/26/20 08:02 11/26/20 08:02 11/26/20 08:02 11/26/20 08:02 11/26/20 08:02 Plan Activity: advance as tolerated, fall precautions Diet: low fat Special Instructions: record daily weights, record daily BP diary Follow up with: ESTEBAN SHARMA MD [Primary Care Provider] - 3-5 Days MARISOL TINSLEY MD [Staff Physician] - 7 Days Forms: Work/School Release Form
[2020-11-26] MEDS: HEPARIN 5,000 UNIT/1 ML VIAL SUB-Q SCH (11:07)
[2020-11-26 12:01] VITALS: BP 117/71
== END 2020-11-26 16:15 | disposition home or self-care (01) | DRG 897 ==
LOC: ED 03:46 → 3A 12:20 → OBSVTOIN 11-24 13:00
PROVIDERS: ADMIT Internal Medicine; ATTEND Internal Medicine
DX: F11.23 Opioid dependence with withdrawal (principal); G93.40 Encephalopathy, unspecified; F19.10 Other psychoactive substance abuse, uncomplicated; E87.6 Hypokalemia; F25.9 Schizoaffective disorder, unspecified; Z82.49 Family history of ischemic heart disease and other diseases of the circulatory system; Z71.51 Drug abuse counseling and surveillance of drug abuser
CPT/HCPCS: 36415; 70450; 71045; 74177; 80053; 80307; 80320; 81001; 82140; 82150; 82962; 83735; 85025; 93005; 96374; G0378; G0480; J1200; J1630; J1644; J2060; J2405; J2765; J2930; J7030; J7042; Q9967